=== PATIENT | female | born 1995 | race African-American/Black ===

== ENCOUNTER → 2017-03-17 | Outpatient (CLI) | payer OTHER ==
[~2017-03-17] MED LIST: BENADRYL25 MG PO; DOXYCYCLINE 10100 MG PO; LUPRON DEPOT IJ; PEPCID20 MG PO; PREDNISONE 20 M20 MG PO
== END ==
LOC: ULTRA 13:06
DX: N63 Unspecified lump in breast (principal)

== ENCOUNTER → 2018-02-13 | Outpatient (CLI) | payer OTHER | LOC: ULTRA 08:41 | DX: R92.8 Other abnormal and inconclusive findings on diagnostic imaging of breast (principal) ==